=== PATIENT | male | born 1965 | race Caucasian/White ===

== ENCOUNTER 2019-12-01 08:43 | Outpatient (CLI) | payer OTHER, SELFPAY ==
[2019-12-01] MEDS: iohexol 300 mg/mL 50 mL Btl PO (09:25)
--- NOTE | 2019-12-01 10:30 | CT_ITS ---
WS: [id number] CT scan of the abdomen and pelvis with Oral and IV contrast. Additional two-dimensional coronal and s agittal reconstruction was performed. 12/01/2019 Clinical Data: upper abdomen skin lesion with numbness Comparison: None. DLP: 1231.[address] scans at [facility] use at least one of these dose optimization techniques: automat ed exposure control; mA and/or kV adjustment per patient size (includes targeted exams where dose is matched to clinical indication); or iterative reconstruction. Findings: The lower lungs show no nodules, masses or effusions. The lesion in the subcutaneous area of the skin overlying the right side of the abdomen adjacent to the liver measures in greatest diameter 4.0 cm. It does not connect with the anterior abdominal muscles. The liver, gallbladder, spleen, adrenal glands and pancreas are normal. The kidneys show equal bilateral contrast excretion with no cyst or masses. The abdominal aorta is normal in size. No appendicitis or diverticulitis is seen. Oral contrast is in the stomach and small bowel and there is no bowel dilatation. No abscess, adenopathy, ascites, mass, obstruction or free air is seen. The bladder is unremarkable. No inguinal hernia is seen. The bones of the lower thorax, lumbar spine, pelvis, and hips show moderate degenerative changes of t he lumbar spine and degenerative disc disease at L5-S1.. CT/CT abdomen pelvis w con* [id number] Impression: 1. Negative for acute intra-abdominal or pelvic abnormalities. 2. Subcutaneous skin lesion measured 4 cm with no defining characteristics.
[2019-12-01] MEDS: iohexol 300 mg/mL 100 mL Btl IV (10:57)
== END 2019-12-01 08:44 | disposition home or self-care (01) ==
LOC: RADWPI 08:48
PROVIDERS: Family Provider Nurse Practitioner; PCP Nurse Practitioner; Visit Provider Surgery
DX: L98.9 Disorder of the skin and subcutaneous tissue, unspecified (principal)
CPT/HCPCS: 74177; Q9967

== ENCOUNTER 2019-12-02 06:08 | Day surgery (SDC) | payer OTHER, SELFPAY ==
[2019-12-01 13:33] VITALS: BMI 38.5
[2019-12-02 06:22] VITALS: BP 177/94; PULSE 82; RESP 18; TEMP 36.8; O2SAT 96
[2019-12-02 06:41] LABS: Glucose Point of Care 256 mg/dL (70-110)
--- NOTE | 2019-12-02 06:43 | ANES.PREANE2 ---
Pre-Anesthetic Assessment Pre-Anesthetic Assessment: Height/Weight: Height 1.83 m Weight 128.82 kg Temp Pulse Resp BP Pulse Ox 98.2 F 82 18 177/94 96 12/02/19 06:22 12/02/19 06:22 12/02/19 06:22 12/02/19 06:22 12/02/19 06:22 Preop Diagnosis: Abdominal wall mass Proposed Procedure: Operation Date: 12/02/19 07:00 Proposed Procedures p 55419 excision of abdominal wall mass R22.0(Not Applicable) - Lion Silva MD Last intake: Intake Last Liquid Date 12/01/19 Last Liquid Time 22:00 Last Solid Date 12/01/19 Last Solid Time 22:00 Social: Social History: Tobacco (quit 2014) and No alcohol Exam: Pre-Anes Outpt Exam: alert, oriented x 3, clear to auscultation bilaterally and regular rate & rhythm Airway: Submandibular: WNL Cervical ROM: WNL MP: 2 Dentition: False (upper) and Other (poor) History/ROS: No significant history except as noted Pulmonary: Pulmonary: None reported CV/HEM: CV/HEM: None reported : : None reported Hepatic: Hepatic: None reported GI: GI: GERD (occ) Metabolic: Metabolic: DM, Hyperlipidemia and Morbid obesity Musc/skel: Musc/skel: None reported Neuropsych: Neuropsych: None reported Anesthetic Plan: ASA status: 3 Anesthesia: Anesthesia Evaluation and MAC Risk of > 500 ml blood loss (7ml/kg in children): No PFSH Anesthesia PFSH: Medical History Diabetes Hemorrhoids Hyperlipidemia Subcutaneous mass of abdominal wall Surgical History History of ear, nose, 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
[2019-12-02] MEDS: sodium chloride 0.9% 1,000 ML 30 ML IV (06:44)
--- NOTE | 2019-12-02 06:51 | W.PM.OPSUD ---
Surgery/Procedure H&P Update DATE OF PROCEDURE: December 02, 2019 DATE H&P PERFORMED: 11/30/19 H&P UPDATE INFORMATION: I have reviewed H&P completed within last 30 days, I have examined patient prior to procedure and No changes to prior documentation PREOP DIAGNOSIS: Abdominal wall mass PLANNED PROCEDURE: Operation Date: 12/02/19 07:00 Proposed Procedures p [id number] excision of abdominal wall mass R22.0(Not Applicable) - Lion Silva MD
[2019-12-02] MEDS: lidocaine 1% INJ 20 mL SUBCUT (07:16)
[2019-12-02 07:49] VITALS: BP 159/91; PULSE 87; RESP 18; TEMP 36.2; O2SAT 96
--- NOTE | 2019-12-04 18:03 | PM.OP ---
Operative Report Date of procedure: December 02, 2019 Pre-op Diagnosis: Abdominal wall mass Post-op diagnosis: same Procedure Done: Excision of abdominal wall mass Specimens removed/disposition: Abdominal wall mass Surgeon: Lion Silva Anesthesia: MAC Estimated blood loss (mL): 20 Condition: stable Disposition: same day Procedure: The patient was taken to the operating room and placed under MAC after IV antibiotic had been administered. The abdomen was prepped and draped in a sterile manner. 1% lidocaine with 0.5% Marcaine was infiltrated around the palpable mass which measured about 4 x 5 cm. Using a 15 blade an elliptical transverse 7 cm incision was made around the palpable mass after ensuring adequate margin. The subcutaneous tissue was divided using electrocautery down to the oblique aponeurosis and the specimen was excised intact. Short stitch was placed superiorly and long stitch was placed laterally using a 3-0 Vicryl suture. The wound was again with saline, superior and inferior skin flaps were raised and the subcutaneous tissues approximated using interrupted 3-0 Vicryl suture and skin was closed using running subcuticular 4-0 Monocryl suture and surgical glue the patient was transferred to same-day surgery in stable condition.
== END 2019-12-02 08:15 | disposition home or self-care (01) ==
PROVIDERS: Surgery; PCP Nurse Practitioner; Visit Provider Pathology Anatomic Pathology & Clinical Pathology
PROC: (CPT 22903; principal; 2019-12-02 07:00)
DX: R19.00 Intra-abdominal and pelvic swelling, mass and lump, unspecified site (principal); Z87.891 Personal history of nicotine dependence; K21.9 Gastro-esophageal reflux disease without esophagitis; E11.9 Type 2 diabetes mellitus without complications; E78.5 Hyperlipidemia, unspecified; E66.01 Morbid (severe) obesity due to excess calories; Z68.38 Body mass index [BMI] 38.0-38.9, adult
CPT/HCPCS: 22903; 12345; 36416; 82962; 88309; J0690; J1885; J2001; J2250; J2704; J3010; J3490; J7030

== ENCOUNTER 2020-01-19 10:09 | Outpatient (CLI) | payer OTHER, SELFPAY ==
--- NOTE | 2020-01-19 17:40 | ONC CON_ITS ---
Dr. Palomo New Patient Note Patient: Tomi Gold Unit #: [id number]: 1965 Dicatated By: John Palomo M.D.Date of Visit: Jan 19, 2020 Onc MED New Patient/Consult Referring Physician: Dr. OSWALDO SILVA M.D. History of Present Illness: Mr. 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 Silva who ordered CT scan of abdomen pelvis on December 01, 2019 which showed negative for acute intra-abdominal or pelvic abnormality except lesion in the subcutaneous area of skin overlying the right side of abdomen adjacent to the liver measures in the greatest dimension 4 cm. It does not connect with the anterior abdominal muscles. 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 His past medical history significant for history of left soft palate tumor removal in 1978 or , as per patient initially he was told it was malignant but after surgery no cancer was seen and no other treatment was offered. Then patient does remember exactly but around 1999 or 2000, he underwent FNA of left neck mass, and was diagnosed with a lymphoma, underwent left neck mass excisional biopsy, again as per patient there was no sign of lymphoma or any other malignancy. And no other treatment was offered at that time Patient denies any history of neck mass or dry mouth or history of hemoptysis or hematemesis denies any weight loss denies any peripheral lymphadenopathy denies any night sweats denies any new bony pains denies any other new symptoms. And patient was surprised with the diagnosis as he had this mass in his right upper abdomen wall for years. Past Medical History: Mr. Duggan medical history consists of hyperlipidemia and type II diabetes. Past Surgical History: Mr. Duggan surgical/procedural history consists of soft palate repair. Medications: Lovastatin 1 Tablet (of 40 mg) Oral daily, metFORMIN HCl 1 Tablet (of 850 mg) Oral b.i.d. Allergies: No Known Allergies. Social History: Mr. Gold is and he is a truck loader and unloader. Mr. Gold no longer smokes. He has no history of drinking. Mr. Gold reports the following support systems: lives with spouse, significant other, family, or friends, lives in own house, supportive family/friends willing to assist with needs, and adequate transportation available for expected visits. His diet consists of regular meals. He indicates his activity level as: regular exercise. Family History: Mr. Bouchers mother is : heart disease. Mr. Gold's father is : gunshot wound. Review Of Symptoms: Constitutional - Appetite is good and weight is stable. No fever, night sweats, or hot flashes. Energy level is good, ENMT - No sinus congestion/drainage. No mouth sores. No sore throat or difficulty swallowing, Hematologic/Lymphatic - No abnormal bruising or bleeding, Respiratory - No shortness of breath. No cough. No pleuritic pain or hemoptysis, Cardiovascular - No angina pain. No palpitations, Gastrointestinal - No nausea or vomiting. No heartburn or acid reflux. No diarrhea or constipation. No blood in the stool or black stools, Genitourinary (M) - No dysuria or hematuria. No urinary frequency. No urgency or incontinence, Musculoskeletal - No joint or bone pain, Neurologic - No headache or dizziness. No numbness or tingling. No other focal neurologic symptoms, Psychiatric - No anxiety or depression. No insomnia. Vital Signs: Performed on Jan 19, 2020 11:40: 0, 37.95 (HIGH), 2.46 sq.m, 72.00 in, 96 %, 70 /min, 24 /min, 177/81 mm(hg) (HIGH), 98.2 F (LOW), and 279.8 lbs (HIGH). Performance Status: 0 - Fully active, able to carry on all predisease activities without restrictions. (ECOG) Physical Examination: ENMT - No mouth sores, no thrush or jaundice, no peripheral lymphadenopathy, Respiratory - Lungs are clear, Cardiovascular - Regular rate and rhythm of heart, Abdomen - Soft, bowel sounds present, well-healed surgical scar in the right upper quadrant area, Extremities - No visible edema or swelling. Lab/Imaging: Most recent lab results are not available for this patient. 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 Solid portion of the neoplasm are composed of fairly monotonous round to spindle cells with amphophilic to clear cytoplasm. Mitosis and significant nuclear atypia are not appreciated. Tumor does not appear to communicate with the epithelium or adnexal structures, no invasion of surrounding fat or skin is identified. All surgical margins clear immunohistochemistry stain positive for CK cocktail, CK Bean, CK 7, CK 14, CK high molecular weight, p63, CD 117, focal patchy S100, and negative for, CK20, CD19, CEA, desmin, myosin, PILAR, RCC, CDX2, uroplakin, PSA, Ki-67 is less than 10% History of left soft palate tumor removal in , as per patient initially was told to be malignant but after surgery no evidence of malignancy was seen so no other treatment was offered History of left neck mass resection in about 1999 or 2000, as per patient FNA of mass was consistent with lymphoma but after resection it was not confirmed as there was no evidence of malignancy. Plan: Discussed with patient regarding his disease status, at this point, it is not clear about definite histopathology and possible primary of this right abdominal mass/tumor, case was discussed with pathologist and he concurred and promised to review the slides and may consider further testing if needed, clinically and histopathologically , it appears, we are dealing with a rare kind of tumor, which is of low proliferative index e.g. Ki-67 is less than 10% and in microscopic description it was mentioned that mitosis and significant nuclear atypia are not appreciated and with clear surgical margin and no invasion seen. [facility] as well as from [facility] regarding left neck mass pathology and patient return to clinic in 2 weeks to discuss further, hopefully by that time our pathologist will conclude the histopathology and may suggest the possible primary or further testing if needed. Signed By: John Palomo M.D. <<Signature on File>>
== END 2020-01-19 10:10 | disposition home or self-care (01) ==
PROVIDERS: PCP Nurse Practitioner; Referring Provider Surgery; Visit Provider Internal Medicine Hematology & Oncology
DX: C79.2 Secondary malignant neoplasm of skin (principal); C80.1 Malignant (primary) neoplasm, unspecified; Z86.03 Personal history of neoplasm of uncertain behavior
CPT/HCPCS: 99203

== ENCOUNTER 2020-03-07 07:44 | Outpatient (CLI) | payer OTHER, SELFPAY ==
[2020-03-07 08:20] LABS: Basophils # 0.1 10^3/uL (0.0-0.1); Basophils % 1.4 %; Eosinophils # 0.3 10^3/uL (0.0-0.8); Eosinophils % 5.2 %; Hematocrit 44.5 % (42.0-52.0); Hemoglobin 15.2 g/dL (11.7-16.6); Lymphocytes # 2.4 10^3/uL (0.8-4.8); Lymphocytes % 41.1 %; Mean Corpuscular HGB Conc 34.2 g/dL (30.0-36.0); Mean Corpuscular Hemoglobin 29.4 pg (28.0-34.0); Mean Corpuscular Volume 86.1 fL (80-94); Mean Platelet Volume 10.7 fL (7.4-10.4); Monocytes # 0.5 10^3/uL (0.2-0.9); Neutrophils # 2.47 10^3/uL (1.8-7.7); Neutrophils % 42.6 %; Nucleated Red Blood Cells % 0 %; Platelet Count 216 10^3/cmm (130-400); Red Blood Count 5.17 10^6/uL (4.1-5.3); Red Cell Distribution Width 11.9 % (12.1-15.1); White Blood Count 5.8 10^3/uL (4.0-10.0)
[2020-03-07 08:40] LABS: Alkaline Phosphatase 89 IU/L (40-130); Blood Urea Nitrogen 10 mg/dL (6-20); Carbon Dioxide 22 mmol/L (22-29); Chloride 104 mmol/L (98-107); Globulin 3.4 g/dL (1.3-4.6); Glomerular Filtration Rate 117.5 mL/min (90-130); Glucose 212 mg/dL (65-115); Osmolality Calculated 287 mOsm/kg (285-295); Sodium 136 mmol/L (136-145); Total Bilirubin 0.5 mg/dL (0.15-1.2); Total Protein 7.4 g/dL (6.6-8.7)
[2020-03-07 08:53] LABS: Anion Gap 14.1 (5-19); Potassium 4.1 mmol/L (3.5-5.1)
[2020-03-07 09:06] LABS: Alanine Aminotransferase < 5 U/L (0-41); Aspartate Amino Transferase 5 U/L (0-40)
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
== END 2020-03-07 07:45 | disposition home or self-care (01) ==
LOC: ONCMED 07:46
PROVIDERS: PCP Nurse Practitioner; Visit Provider Internal Medicine Hematology & Oncology
DX: C80.1 Malignant (primary) neoplasm, unspecified (principal); R19.09 Other intra-abdominal and pelvic swelling, mass and lump; Z86.03 Personal history of neoplasm of uncertain behavior
CPT/HCPCS: 36415; 80053; 85025; 99214

== ENCOUNTER 2020-12-21 16:50 | Emergency (ER) | payer OTHER, SELFPAY ==
[2020-12-21 18:07] VITALS: BP 168/90; PULSE 104; RESP 24; TEMP 36.4; O2SAT 97; BMI 38.0
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
[2020-12-21 18:29] LABS: Basophils # 0.1 10^3/uL (0.0-0.1); Eosinophils # 0.5 10^3/uL (0.0-0.8); Eosinophils % 4.8 %; Hematocrit 46.3 % (42.0-52.0); Hemoglobin 15.8 g/dL (11.7-16.6); Lymphocytes # 2.7 10^3/uL (0.8-4.8); Lymphocytes % 24.2 %; Mean Corpuscular HGB Conc 34.1 g/dL (30.0-36.0); Mean Corpuscular Hemoglobin 29.4 pg (28.0-34.0); Mean Corpuscular Volume 86.2 fL (80-94); Mean Platelet Volume 10.7 fL (7.4-10.4); Monocytes # 0.8 10^3/uL (0.2-0.9); Monocytes % 7.2 %; Neutrophils # 6.89 10^3/uL (1.8-7.7); Neutrophils % 61.5 %; Nucleated Red Blood Cells % 0 %; Platelet Count 249 10^3/cmm (130-400); Red Blood Count 5.37 10^6/uL (4.1-5.3); Red Cell Distribution Width 12.3 % (12.1-15.1); White Blood Count 11.2 10^3/uL (4.0-10.0)
[2020-12-21] MEDS: iohexol 300 mg/mL 100 mL Btl IV (18:42)
[2020-12-21 18:47] LABS: Albumin Level 4.1 g/dL (3.5-5.2); Alkaline Phosphatase 89 IU/L (40-130); Blood Urea Nitrogen 17 mg/dL (6-20); Carbon Dioxide 19 mmol/L (22-29); Chloride 100 mmol/L (98-107); Globulin 3.3 g/dL (1.3-4.6); Glomerular Filtration Rate 139.9 mL/min (90-130); Glucose 214 mg/dL (65-115); Osmolality Calculated 288 mOsm/kg (285-295); Sodium 135 mmol/L (136-145); Total Bilirubin 0.7 mg/dL (0.15-1.2); Total Protein 7.4 g/dL (6.6-8.7)
[2020-12-21 19:01] LABS: Alanine Aminotransferase 38 U/L (0-41); Anion Gap 20.4 (5-19); Aspartate Amino Transferase 35 U/L (0-40); Potassium 4.4 mmol/L (3.5-5.1)
[2020-12-21] MEDS: tetanus-diphtheria tox (adult) 0.5 mL SDV IM (19:14)
[2020-12-21 19:27] VITALS: BP 154/91; PULSE 88; RESP 18; O2SAT 92
== END 2020-12-21 19:28 | disposition home or self-care (01) ==
PROVIDERS: Emergency Provider Physician Assistant; PCP Nurse Practitioner
DX: S20.212A Contusion of left front wall of thorax, initial encounter (principal); E11.9 Type 2 diabetes mellitus without complications; E78.5 Hyperlipidemia, unspecified; Z87.891 Personal history of nicotine dependence; V29.9XXA Motorcycle rider (driver) (passenger) injured in unspecified traffic accident, initial encounter; Z23 Encounter for immunization
CPT/HCPCS: 70450; 71045; 71260; 72125; 74177; 80053; 85025; 90471; 90714; 99283; Q9967

== ENCOUNTER → 2021-10-11 09:56 | Outpatient (BNVA) | payer OTHER, SELFPAY | PROVIDERS: PCP Nurse Practitioner; Referring Provider Nurse Practitioner; Visit Provider Specialist | DX: S49.91XA Unspecified injury of right shoulder and upper arm, initial encounter (principal); M25.511 Pain in right shoulder; M19.011 Primary osteoarthritis, right shoulder | CPT/HCPCS: 73030 ==

== ENCOUNTER 2021-10-15 | Outpatient (RCR) | payer OTHER, SELFPAY | END 2021-11-14 23:59 | disposition home or self-care (01) | LOC: SPT | PROVIDERS: Absent Provider Specialist; Family Provider Specialist; PCP Nurse Practitioner; Referring Provider Specialist; Visit Provider Specialist | DX: M75.101 Unspecified rotator cuff tear or rupture of right shoulder, not specified as traumatic (principal) | CPT/HCPCS: 97161; 97530; G0283 ==

== ENCOUNTER 2021-11-07 11:26 | Day surgery (SDC) | payer OTHER, SELFPAY ==
[2021-11-06 09:06] VITALS: BMI 38.0
--- NOTE | 2021-11-06 09:09 | ECG_ITS ---
[facility] Test Date: 2021-11-06 Pat Name: Keith Gold Department: Room: Gender: Male Department Clerk: : 1965 Requested By: Rupinder Sewell Order Number: [id number] Trey MD: Miguel Beard M.D. Measurements Intervals [place] Rate: 79 P: 12 CA: 148 QRS: -48 QRSD: 104 T: 9 QT: 375 QTc: 431 Interpretive Statements SINUS RHYTHM PATTERN CONSISTENT WITH PULMONARY DISEASE LEFT ANTERIOR FASCICULAR BLOCK [QRS AXIS <= -45, QR IN I, RS IN II] Compared to ECG 07/31/2017 21:19:35 Left anterior fascicular block now present Left-axis deviation no longer present Electronically Signed On 11-06-2021 17:28:31 CDT by Miguel Beard M.D. [id number]
[2021-11-06 09:19] LABS: Add Urine Microscopic? NO; Charge for UA Resulting for Rev
[2021-11-06 09:32] LABS: Bilirubin Urine Neg (Negative); Blood Urine Neg (Negative); Glucose Urine UA 4+ (Normal); Ketones Urine 1+ (Negative); Leukocyte Esterase Urine Negative (Negative); Nitrate Urine Negative (Negative); Protein Urine Neg (Negative); Specific Gravity, Urine 1.025 (1.005-1.030); Urine Appearance Clear (CLEAR); Urine Color Yellow (Yellow); Urobilinogen Urine Norm (Negative); pH Urine 5 (5-7)
[2021-11-06 09:39] LABS: Basophils # 0.1 10^3/uL (0.0-0.1); Basophils % 1.5 %; Eosinophils # 0.2 10^3/uL (0.0-0.8); Eosinophils % 4.2 %; Hematocrit 43.7 % (42.0-52.0); Hemoglobin 15.4 g/dL (11.7-16.6); Lymphocytes # 2.1 10^3/uL (0.8-4.8); Lymphocytes % 39.6 %; Mean Corpuscular HGB Conc 35.2 g/dL (30.0-36.0); Mean Corpuscular Hemoglobin 30.6 pg (28.0-34.0); Mean Corpuscular Volume 86.9 fl (80-94); Mean Platelet Volume 10.8 fL (7.4-10.4); Monocytes # 0.4 10^3/uL (0.2-0.9); Monocytes % 7.9 %; Neutrophils # 2.45 10^3/uL (1.8-7.7); Neutrophils % 46.2 %; Nucleated Red Blood Cells % 0 %; Platelet Count 250 10^3/cmm (130-400); Red Blood Count 5.03 10^6/uL (4.1-5.3); Red Cell Distribution Width 12.5 % (12.1-15.1); White Blood Count 5.3 10^3/uL (4.0-10.0)
--- NOTE | 2021-11-06 14:10 | P.ANESASSM_ITS ---
Pre-Anesthetic Assessment Height/Weight: Height 1.83 m Weight 127.006 kg Preop Diagnosis: Complete tear right supraspinatus tendon, rotator cuff Operation Date: 11/07/21 07:00 Proposed Procedures p Rotator Cuff Repair Open 24786/m75.100(Not Applicable) - Janeth Rogers MD Familial anesthetic complications: None Was Beta Rizwan taken within 24 hours: N/A Was Clonidine taken within 24 hours: N/A Social No alcohol and No tobacco Exam alert, oriented x 3, clear to auscultation bilaterally and regular rate & rhythm Airway Submandibular: within normal limits Cervical ROM: within normal limits Mallampati: Class II Dentition: false (False uppers ) Pulmonary None reported CV/HEM Hypertension EKG NSR, report pending METS > 4 None reported Hepatic None reported GI Gastroesophageal Reflux Disease Metabolic Diabetes Mellitus [facility]/skel Osteoarthritis/DJD Rotator cuff tear Neuropsych None reported Anesthetic Plan ASA status: 2 Anesthesia: Anesthesia Evaluation, General and Regional (specify below) (brachial plexus block for post op pain control) Other: We discussed risk and benefits of general anesthesia including PONV, sore throat (sometimes severe), corneal abrasion, positioning and peripheral nerve injuries, life threatening allergic reaction, post operative ICU admission requiring prolonged intubation, stroke, heart attack, , and rare incidences of recall. Patient consents to proceed with general anesthesia. We discussed risk and benefits of nerve block for post op pain control including management of pain and titration of pain medications as signs/symptoms of nerve block wearing off begin to appear and/or prior bed. We discussed risk of failed nerve block, PTX, vascular injury or other vital structure injury, abscess/infection, admission for O2 therapy related to phrenic nerve blockade, LAST, and nerve injury. Pt consents to brachial plexus block for post op pain control. Risk of > 500 ml blood loss (7ml/kg in children): No Medications/Allergies Home Medications Medication Instructions Recorded Confirmed Last Taken Type lovastatin 20 mg tablet 20 mg PO DAILY 11/27/19 11/06/21 12/01/19 History metformin 850 mg tablet 850 mg PO BID 11/27/19 11/06/21 12/01/19 History hydrocodone 5 mg-acetaminophen 325 1 tab PO Q6H PRN #20 tab 12/21/20 11/06/21 Unknown Rx mg tablet glipizide 5 mg tablet 5 mg PO BEDTIME 10/11/21 11/06/21 Unknown History losartan 25 mg tablet 25 mg PO BEDTIME 10/11/21 11/06/21 Unknown History omeprazole 20 mg tablet,delayed 20 mg PO DAILY 10/11/21 11/06/21 Unknown History release meloxicam 15 mg tablet 15 mg PO BEDTIME 11/06/21 11/06/21 Unknown History Allergies Allergy/AdvReac Type Severity Reaction Status Date / Time No Known Allergies Allergy Verified 11/06/21 09:02 [facility] Anesthesia Medical History Diabetes Hemorrhoids Hyperlipidemia Subcutaneous mass of abdominal wall Surgical History History of ear, nose, and throat (ENT) surgery 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 Family History Father CAD (coronary artery disease) Hypertension Mother Stroke Other Cancer Diabetes Denies family history of Anesthesia complication Bleeding disorder Social History Smoking and tobacco status: never smoked Alcohol intake: never Household members: spouse Marital status: Current occupational status: employed History of recent travel: No Data Anesthesia : 11/06/21 09:32 11/06/21 09:32 Short CBC 11/06/21 Range/Units 09:32 WBC 5.3 (4.0-10.0) 10^3/uL Hgb 15.4 (11.7-16.6) g/dL Hct 43.7 (42.0-52.0) % MCV 86.9 (80-94) fl Plt Count 250 (130-400) 10^3/cmm Neut % (Auto) 46.2 % Neut # (Auto) 2.45 (1.8-7.7) 10^3/uL BMP 11/06/21 09:32 Sodium Cancelled Potassium Cancelled Chloride Cancelled Carbon Dioxide Cancelled BUN Cancelled Creatinine Cancelled Glucose Cancelled Calcium Cancelled Liver Function 11/06/21 Range/Units 09:32 Total Bilirubin Cancelled AST Cancelled ALT Cancelled Alkaline Phosphatase Cancelled Albumin Cancelled Urine 11/06/21 Range/Units 09:14 Urine Color Yellow (Yellow) Urine Appearance Clear (CLEAR) Urine pH 5 (5-7) Ur Specific [place] 1.025 (1.005-1.030) Urine Protein Neg (Negative) Urine Glucose (UA) 4+ H (Normal) Urine Ketones 1+ H (Negative) Urine Nitrate Negative (Negative) Urine Bilirubin Neg (Negative) Ur Leukocyte Esterase Negative (Negative) Cardiac Studies: No Data to Display
[2021-11-07] VITALS (7 sets, daily range): BP systolic 126–181; BP diastolic 76–109; PULSE 82–101; RESP 13–22; TEMP 36.2–36.6; O2SAT 90–97
[2021-11-07] MEDS: acetaminophen 1,000 MG/100 ML PIGGYBACK 400 MG IV (11:58)
[2021-11-07] MEDS: sodium chloride 0.9% 1,000 ML 30 ML IV (11:58)
[2021-11-07] MEDS: CELEcoxib 200 mg Capsule 400 MG PO (11:59)
[2021-11-07 12:08] LABS: Glucose Point of Care 257 mg/dL (70-110)
[2021-11-07] MEDS: midazolam 1 mg/mL INJ 2 mL 2 MG IVP (13:00)
--- NOTE | 2021-11-07 13:18 | ANES.PROC ---
Anesthesia Procedures Procedure/Date: 11/07/21 Nerve Block ^: Nerve Block 1: Main Anesthesia: general anesthesia Time Out Performed: Yes Consent: requested by attending/covering physician, from patient, risks and benefits reviewed and patient agrees to proceed Nerve block location: supraclavicular (R) Anesthesia monitors applied: EKG, BP cuff and oxygen Nerve block position: semi sitting Anesthetic Used: ropivicaine 0.5% (30) Amount of anesthesia used (mL): 30 Nerve Stimulator Used?: No Interscalene/Femoral BLK: 4 stimuplex 21 g needle used for position and inplane approach, visualize local anesthetic spread and no vascular puncture identified Injection: neg aspiration of heme Patient Tolerated Procedure: well Additional Comments: unable to visualize interscalene - supraclavicular block performed with 30 cc volume for spread
--- NOTE | 2021-11-07 13:30 | P.HPUD_ITS ---
Surgery/Procedure H&P Update DATE OF PROCEDURE: November 07, 2021 DATE H&P PERFORMED: 10/11/21 H&P UPDATE INFORMATION: I have reviewed H&P completed within last 30 days, I have examined patient prior to procedure, No changes to prior documentation and H&P is in [facility] EMR on date indicated PREOP DIAGNOSIS: Complete tear right rotator cuff PLANNED PROCEDURE: Operation Date: 11/07/21 14:10 Proposed Procedures p Rotator Cuff Repair Open [id number]/m75.100(Not Applicable) - Janeth Rogers MD Related Problem List Diagnoses (1) Complete tear of right rotator cuff:
[2021-11-07] MEDS: ceFAZolin 1,000 mg SDV 1000 MG IRRIGATION (14:15)
--- NOTE | 2021-11-07 15:49 | P.OP_ITS ---
Operative Report Date of procedure: November 07, 2021 Pre-op diagnosis: Complete tear right rotator cuff Post-op diagnosis: Complete rotator cuff tear with impingement from acromion and acromioclavicular joint Post-op findings: Severe impingement on the right rotator cuff from the acromion and acromioclavicular joint as well as large rotator cuff tear without retraction Procedure done: Right rotator cuff repair, distal clavicle resection, and acromioplasty Implants: Biosteon intraline 5.5mm absorbable suture anchor with 2 #2 Force Fiber's Specimens removed/disposition: Bone, disposed of Pathology: none sent Surgeon: Janeth Rogers Hi [place] Driver[facility] Anesthesia: General (General intubated, ASA 2, supplemental supraclavicular block) Estimated blood loss (mL): 30 IV fluids (mL): 800 Urine output (mL): 0 (No Posadas) Complications: None Findings: Significant impingement from the acromion and acromioclavicular joint with large rotator cuff tear, but no retraction. Condition: stable Disposition: PACU (Then return to same-day surgery for discharge to home) Brief History: Patient states he was picking up a 5 gallon bucket of feed when he felt a grump feeling in his shoulder. Patient states this happened in April 2021. Patient states he has had pain since. Patient describes the pain as a jolt and sharp pain. Patient states the lateral shoulder is where he has most pain. Patient also has pain in to the hands and into his neck. MRI confirmed complete rotator cuff tear within the supraspinatus tendon. Procedure: The patient was brought to the operating theater and underwent general intubated, ASA 2 anesthesia with supplemental supraclavicular block. The patient was placed in a beachchair position and subsequently the right upper extremity was prepped and draped in the usual fashion utilizing DuraPrep. The arm was draped free. A surgical pause was performed prior to commencement of the surgical procedure. At the time of the surgical pause, we confirmed the site and side of surgery as well as administration of appropriate preoperative antibiotics Ancef 2 g. MRI was also reviewed at that time. Following the surgical pause, an incision was made at approximately the level of the acromioclavicular joint extending across the anterolateral corner of the acromion and distally as necessary. Care was taken to avoid injury to the axillary nerve by limiting the distal extent of the incision. Dissection continued through skin and soft tissues using a scalpel. Hemostasis was obtained using electrocautery. Soft tissues were elevated off the acromion. An acromioplasty was then accomplished using a combination of a saw and a power rasp. With this, we were able to remove compression caused by the acromion which was noted to be quite significant. The rotator cuff was then evaluated to look for tears. The rotator cuff tear was found to have the large tear at the distal supraspinatus insertion as reported in the MRI. Additionally, there had been significant compression on the rotator cuff which was relieved with removal of the undersurface of the acromion as well as the distal clavicle. The rotator cuff tear was evaluated, and the edges were freshened using a scalpel. The reattachment point bony on the humeral head was addressed with a Ronguer to prepare a bed for appropriate repair. Repair was accomplished using 2 absorbable suture anchors with 2 sutures each. The tear orientation was noted to be horizontal across the insertion point of the supraspinatus. It was repaired uneventfully and down to the bone without significant stress across the repair. After the rotator cuff had been thus addressed, the shoulder was placed through further range of motion to assure there was no further evidence of rotator cuff tear. The acromioclavicular joint was exposed. A saw was then used to resect the distal clavicle without difficulty. The undersurface of the clavicle was palpated and was slightly further debrided. A power rasp was used to further smooth the area. When this was felt to be adequately resected, the wound was irrigated. Attention was then directed to closure. The wound was irrigated and closure was accomplished with 0 Vicryl in the capsular tissues overlying the acromioclavicular joint area as well as over the acromion and down into the deltoid muscle. 3-0 Monocryl was used to close the subcutaneous tissues followed by 4-0 Monocryl subcuticular closure. This was followed by Dermabond, Steri-Strips, and OpSite. The patient was placed in a slingshot style sling and was returned to the recovery room in satisfactory condition. The patient will be discharged to home to follow-up with me in the office as scheduled. There were no complications and no specimens. 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
--- NOTE | 2021-11-07 17:09 | SUR.PHASEII ---
16:55 ROM AND SENSATION TO FINGERS OF RIGHT HAND.
--- NOTE | 2021-11-07 17:29 | ANE.PACU2 ---
Inpatient post-anesthesia follow up: Airway intact: Yes Vital signs: Temperature 97.8 F Pulse Rate 82 Respiratory Rate 16 Blood Pressure 130/81 Pulse Oximetry 93 Oxygen Delivery Me thod Room Air Oxygen Flow Rate 8 Fraction of Inspir ed Oxygen Hydration adequate: Yes Nausea and vomiting: No Pain level: 1 Mental status: Baseline
== END 2021-11-07 16:55 | disposition home or self-care (01) ==
PROVIDERS: Visit Provider Specialist
PROC: (CPT 23420; principal; 2021-11-07 14:10)
PROC: (CPT 23130; 2021-11-07 14:10)
PROC: (CPT 23120; 2021-11-07 14:10)
DX: M75.121 Complete rotator cuff tear or rupture of right shoulder, not specified as traumatic (principal); M75.41 Impingement syndrome of right shoulder; M19.011 Primary osteoarthritis, right shoulder; I10 Essential (primary) hypertension; K21.9 Gastro-esophageal reflux disease without esophagitis; E11.9 Type 2 diabetes mellitus without complications; E78.5 Hyperlipidemia, unspecified
CPT/HCPCS: 23420; 36415; 36416; 64447; 76942; 81003; 82962; 85025; 93005; C1713; J0690; J1100; J2250; J2405; J2704; J2710; J2795; J3010; J3490; J7030

== ENCOUNTER 2022-01-02 06:00 | Outpatient (RCR) | payer OTHER, SELFPAY | END 2022-01-14 23:59 | disposition home or self-care (01) | LOC: SPT 06:00 | PROVIDERS: PCP Nurse Practitioner; Referring Provider Specialist; Visit Provider Specialist | DX: Z47.89 Encounter for other orthopedic aftercare (principal) | CPT/HCPCS: 97110; 97161 ==

== ENCOUNTER 2022-01-15 06:00 | Outpatient (RCR) | payer OTHER, SELFPAY | END 2022-02-14 23:59 | disposition home or self-care (01) | LOC: SPT 06:00 | PROVIDERS: PCP Nurse Practitioner; Referring Provider Specialist; Visit Provider Specialist | DX: Z47.89 Encounter for other orthopedic aftercare (principal) | CPT/HCPCS: 97032; 97110; 97530 ==

== ENCOUNTER 2022-02-15 06:00 | Outpatient (RCR) | payer OTHER, SELFPAY | END 2022-03-16 23:59 | disposition home or self-care (01) | LOC: SPT 06:00 | PROVIDERS: PCP Nurse Practitioner; Visit Provider Specialist | DX: M75.101 Unspecified rotator cuff tear or rupture of right shoulder, not specified as traumatic (principal); M25.511 Pain in right shoulder; M75.41 Impingement syndrome of right shoulder | CPT/HCPCS: 97110 ==

== ENCOUNTER 2022-03-17 06:00 | Outpatient (RCR) | payer OTHER, SELFPAY | END 2022-04-16 23:59 | disposition home or self-care (01) | LOC: SPT 06:00 | PROVIDERS: PCP Nurse Practitioner; Visit Provider Specialist | DX: M75.41 Impingement syndrome of right shoulder (principal); M75.101 Unspecified rotator cuff tear or rupture of right shoulder, not specified as traumatic; M25.511 Pain in right shoulder | CPT/HCPCS: 97110 ==

== ENCOUNTER 2022-04-17 06:00 | Outpatient (RCR) | payer OTHER, SELFPAY | END 2022-05-16 23:59 | disposition home or self-care (01) | LOC: SPT 06:00 | PROVIDERS: PCP Nurse Practitioner; Visit Provider Specialist | DX: M75.101 Unspecified rotator cuff tear or rupture of right shoulder, not specified as traumatic (principal); M25.511 Pain in right shoulder; M75.41 Impingement syndrome of right shoulder | CPT/HCPCS: 97110 ==

== ENCOUNTER → 2022-04-30 08:50 | Outpatient (BNVA) | payer OTHER, SELFPAY | PROVIDERS: PCP Nurse Practitioner; Visit Provider Specialist | DX: Z98.890 Other specified postprocedural states (principal); M19.011 Primary osteoarthritis, right shoulder; M75.41 Impingement syndrome of right shoulder; M75.121 Complete rotator cuff tear or rupture of right shoulder, not specified as traumatic | CPT/HCPCS: 73030 ==

== ENCOUNTER 2022-05-17 06:00 | Outpatient (RCR) | payer OTHER, SELFPAY | END 2022-05-22 14:03 | disposition home or self-care (01) | LOC: SPT 06:00 | PROVIDERS: PCP Nurse Practitioner; Visit Provider Specialist | DX: M75.101 Unspecified rotator cuff tear or rupture of right shoulder, not specified as traumatic (principal) | CPT/HCPCS: 97110 ==

== ENCOUNTER → 2023-08-06 10:53 | Outpatient (BNVA) | payer OTHER, SELFPAY | PROVIDERS: Referring Provider Nurse Practitioner Family; Visit Provider Internal Medicine | DX: E11.9 Type 2 diabetes mellitus without complications (principal); E78.5 Hyperlipidemia, unspecified | CPT/HCPCS: 36415; 80053; 80061; 82044; 83036; 84681; 86337; 86341 ==

== ENCOUNTER 2023-08-29 09:56 | Outpatient (CLI) | payer OTHER, SELFPAY ==
--- NOTE | 2023-08-29 14:17 | P.DIET_ITS ---
Reason for Visit: 60146 E11.9 Person Interviewed: Patient Medical History, Labs and Background: Keith mentioned HTN, high cholesterol and high triglycerides. He was highly skeptical that talking to a dietitian would be helpful. Height: 6 ft Weight: 250 lb BMI: 34 kg/m2 Weight History: Keith said he has always weighed about what he is now. Sleep Hygiene: Goes to bed early, gets up early - Keith doesn't have trouble sleeping and is able to go right back to sleep if he wakes up for the bathroom. Physical Activity: Chores in the morning take 20-30 minutes which is his activity for the day. 24 Hour Recall: Breakfast Time: Snack Time: Lunch Time: Snack Time: Dinner Time: Snack Time: Eating Out: Keith and his prefer eating at home and rarely eat out. Soda vs Milk vs Water: In general, Keith drinks several glasses of water/day, 1- 3 cups of coffee/day and no sugar sodas 1-2/week Additional Comments: Keith mentioned that his is invested in what he eats and reads labels, etc. Recommendations: Assessment: When I called to confirm his appointment Keith said he wasn't sure why he needed to come since he knows what to eat. I suggested we talk and he answer some questions regarding habits as well as his general eating plan and we discovered some areas he wanted more insight/ information. Nutrition diagnosis: Altered nutrition related labs r/t DM2 AEB Keith's assertion that his blood glucose had wide swings. Intervention: We talked through many handouts, including the Diabetic Myplate. Keith was intrigued by the concept of managing carbohydrates and adding lean protein and/or healthy fats to round out every meal and snack. Because he skips meals which results in a nap or being ravenously hungry, we discussed the importance of eating regularly so as to avoid glucose highs and lows as well as overeating. He also appreciated that he could add things back to his diet like beans and corn as long as he managed the serving amount and had protein/fat with it. The more we talked, the more Keith thought there were some things he could do differently. He agreed to try and drink more water and to try protein drinks for the times he didn't want a meal. Monitoring and Evaluation: Along with the handouts, Keith was given a goal sheet that included my email and office number for F/U questions. Coding Level of Care Code Nutrition/Individ/Init 60 min Time Spent (min) 60
== END 2023-08-29 09:57 | disposition home or self-care (01) ==
LOC: DIET 09:57
PROVIDERS: PCP Nurse Practitioner Family; Visit Provider Internal Medicine
DX: Z71.3 Dietary counseling and surveillance (principal); E11.9 Type 2 diabetes mellitus without complications; Z68.34 Body mass index [BMI] 34.0-34.9, adult
CPT/HCPCS: 97802

== ENCOUNTER 2023-10-31 07:39 | Outpatient (CLI) | payer OTHER, SELFPAY ==
[2023-10-31 08:17] LABS: Creatinine Urine, Random 75 mg/dL (39-259); Microalbumin Random Urine 4 ug/dL (0-20)
[2023-10-31 08:18] LABS: Estmated Average Glucose 180; Hemoglobin A1C 7.9 % (4.0-6.0)
[2023-10-31 08:19] LABS: Alanine Aminotransferase 38 U/L (0-41); Albumin Level 4.2 g/dL (3.5-5.2); Alkaline Phosphatase 62 U/L (40-130); Blood Urea Nitrogen 16 mg/dL (6-20); Calcium 8.6 mg/dL (8.5-10.5); Carbon Dioxide 24 mmol/L (22-29); Chloride 107 mmol/L (98-107); Chol HDL Ratio 5.27 mg/dL (1.0-5.00); Cholesterol 174 mg/dL (0-200); Globulin 3.7 g/dL (1.3-4.6); Glomerular Filtration Rate 86.7 mL/min (90-130); Glucose 135 mg/dL (65-115); HDL Cholesterol 33 mg/dL (60-100); LDL Cholesterol Calculated 65 mg/dL (50-129); LDL HDL Ratio 1.97 RATIO (0.00-3.22); Osmolality Calculated 295 mOsm/kg (285-295); Sodium 141 mmol/L (136-145); Total Bilirubin 0.6 mg/dL (0.15-1.2); Total Protein 7.9 g/dL (6.6-8.7); Triglycerides 380 mg/dL (0-150)
[2023-10-31 08:21] LABS: Microalbum Creatinine Ratio Ur 53 mg/dL (0-20)
[2023-10-31 08:24] LABS: Anion Gap 14.1 (5-19); Aspartate Amino Transferase 25 U/L (0-40); Potassium 4.1 mmol/L (3.5-5.1)
== END 2023-10-31 07:40 | disposition home or self-care (01) ==
LOC: LAB 07:39
PROVIDERS: PCP Nurse Practitioner Family; Visit Provider Internal Medicine
DX: E11.9 Type 2 diabetes mellitus without complications (principal); E78.5 Hyperlipidemia, unspecified
CPT/HCPCS: 80053; 80061; 82044; 83036

== ENCOUNTER 2024-04-30 08:25 | Outpatient (CLI) | payer OTHER, SELFPAY ==
[2024-04-30 09:07] LABS: Alanine Aminotransferase 41 U/L (0-41); Albumin Level 4.3 g/dL (3.5-5.2); Alkaline Phosphatase 74 U/L (40-130); Anion Gap 15.1 (5-19); Aspartate Amino Transferase 24 U/L (0-40); Blood Urea Nitrogen 13 mg/dL (6-20); Calcium 9.3 mg/dL (8.5-10.5); Carbon Dioxide 25 mmol/L (22-29); Chloride 102 mmol/L (98-107); Chol HDL Ratio 6.43 mg/dL (1.0-5.00); Cholesterol 225 mg/dL (0-200); Estmated Average Glucose 223; Globulin 3.2 g/dL (1.3-4.6); Glomerular Filtration Rate 99.3 mL/min (90-130); Glucose 222 mg/dL (65-115); HDL Cholesterol 35 mg/dL (60-100); Hemoglobin A1C 9.4 % (4.0-6.0); Osmolality Calculated 291 mOsm/kg (285-295); Potassium 5.1 mmol/L (3.5-5.1); Sodium 137 mmol/L (136-145); Total Bilirubin 0.6 mg/dL (0.15-1.2); Total Protein 7.5 g/dL (6.6-8.7); Triglycerides 612 mg/dL (0-150)
[2024-04-30 09:22] LABS: Creatinine Urine, Random 36 mg/dL (39-259); Microalbumin Random Urine 2 ug/dL (0-20)
[2024-04-30 09:26] LABS: Microalbum Creatinine Ratio Ur 56 mg/dL (0-20)
[2024-04-30 09:28] LABS: LDL Cholesterol Direct 74 mg/dL (0-100)
== END 2024-04-30 08:26 | disposition home or self-care (01) ==
LOC: LAB 08:27
PROVIDERS: PCP Nurse Practitioner Family; Visit Provider Internal Medicine
DX: E11.9 Type 2 diabetes mellitus without complications (principal); E78.5 Hyperlipidemia, unspecified
CPT/HCPCS: 36415; 80053; 80061; 82044; 83036; 83721